=== PATIENT | female | born 1960 | race Caucasian/White ===

== ENCOUNTER 2023-06-16 09:42 | Outpatient (CLI) | payer OTHER ==
--- NOTE | 2023-06-16 15:21 | DEXA Report ---
PROCEDURE: Dexa Spine and/or Hip INDICATIONS: MENOPAUSAL TECHNIQUE: Dual energy x-ray absorptiometry (DXA) was performed on a [employer] System. Regions measur ed are the AP Spine, femoral neck, and if needed forearm. COMPARISON: None. FINDINGS: Lumbar Spine: Bone Mineral Density 1.289 g/cm/cm,T score 0.9. Left Femoral Neck: Bone Mineral Density 0.813 g/cm/cm, T score -1.6. Left Hip: Bone Mineral Density 0.867 g/cm/cm,T score -1.1. (T score greater or equal to -1.0: NORMAL) (T score from -1.1 to -2.4: OSTEOPENIA) (T score less than or equal to -2.5 to: OSTEOPOROSIS) Impression: By WHO criteria, this patient has low bone density (osteopenia). Patients with diagnosis of osteoporosis or osteopenia should have regular bone mineral density assess ment. For those eligible for Medicare, routine testing is allowed once every 2 years. Testing frequ ency can be increased for patients who have rapidly progressing disease or for those who are receivin g medical therapy to restore bone mass. Reviewed by: Haris Sanchez MD on 06/16/2023 3:20 PM PST Approved by: Haris Sanchez MD on 06/16/2023 3:20 PM PST Station ID: [id number]
== END 2023-06-16 09:43 | disposition home or self-care (01) ==
LOC: DI 09:42
PROVIDERS: ATTEND Internal Medicine
DX: M85.89 Other specified disorders of bone density and structure, multiple sites (principal)

== ENCOUNTER 2023-08-19 14:47 | Outpatient (CLI) | payer OTHER ==
--- NOTE | 2023-08-27 11:48 | Mammography Report ---
BILATERAL DIGITAL SCREENING MAMMOGRAM 3D/2D: 08/19/2023 CLINICAL: Routine screening. Family history of breast cancer. No prior exams were available for comparison. There are scattered areas of fibroglandular density in both breasts (category b / 25%-50% glandular t issue). There is a cluster of focal asymmetries in the right breast central to the nipple in the retroareolar region. There also is a focal asymmetry in the right breast at 9 o'clock posterior depth. There is a focal asymmetry in the left breast central to the nipple anterior depth. No other significant masses or calcifications are seen in either breast. IMPRESSION: INCOMPLETE: NEEDS ADDITIONAL IMAGING EVALUATION The cluster of focal asymmetries in the right breast central to the nipple in the retroareolar region is indeterminate. Additional views with possible ultrasound are recommended. The focal asymmetry in the right breast at 9 o'clock posterior depth is indeterminate. Additional vi ews with possible ultrasound are recommended. The focal asymmetry in the left breast central to the nipple anterior depth is indeterminate. Additi onal views with possible ultrasound are recommended. Based on the Tyrer Cuzick model (a risk assessment model) the patients lifetime risk is 5.0% and her 10 year risk is 2.3%. According to the ACR, ACS, and NCCN guidelines, an annual breast MRI exam along with mammogram is recommended if the patients lifetime risk is 20% or greater. This exam was interpreted at Station ID: [id number]. NOTE: For mammograms, a report in lay terms will be sent to the patient. Approximately 15% of breast malignancies will not be visualized mammographically. In the management of a palpable breast mass, a negative mammogram must not discourage biopsy of a clinically suspicious lesion. Electronically Signed By: Wan Parsons M.D. lc/:08/27/2023 10:33:56 ACR BI-RADS Category 0: Incomplete 3340F PARENCHYMAL PATTERN: (A) - The breast(s) demonstrate(s) scattered fibroglandular densities. BI-RADS CATEGORY: (0) - 0 Mammo and [place] [id number] Immediate follow-up LATERALITY: (B)
== END 2023-08-19 14:48 | disposition home or self-care (01) ==
LOC: DI.S 14:47
DX: Z12.31 Encounter for screening mammogram for malignant neoplasm of breast (principal); Z80.3 Family history of malignant neoplasm of breast; R92.323 Mammographic fibroglandular density, bilateral breasts; R92.8 Other abnormal and inconclusive findings on diagnostic imaging of breast

== ENCOUNTER 2023-09-16 07:44 | Outpatient (CLI) | payer OTHER ==
--- NOTE | 2023-09-16 11:34 | Mammography Report ---
BILATERAL DIGITAL DIAGNOSTIC MAMMOGRAM 3D/2D WITH SPOT COMPRESSION: 09/16/2023 CLINICAL: Patient returns today to evaluate asymmetries in bilateral breasts. Comparison is made to exam dated: 08/19/2023 mammogram - [facility]. There are scattered areas of fibroglandular density in both breasts (category b / 25%-50% glandular t issue). There also is a focal asymmetry in the right breast at 2 o'clock anterior depth. This correlates as an incidental finding and is seen on additional views.. The focal asymmetry in the right breast at 9 o'clock posterior depth is not seen in additional views. The cluster of focal asymmetries in the right breast central to the nipple in the retroareolar region are not seen in additional views. The focal asymmetry in the left breast central to the nipple anterior depth is seen in additional vie ws. No other significant masses or calcifications are seen in either breast. IMPRESSION: INCOMPLETE: NEEDS ADDITIONAL IMAGING EVALUATION The right breast asymmetries deep to the nipple and at 9 o'clock seen on the screening mammogram like ly respresent superimposed fibroglandular tissue and are benign. The focal asymmetry in the right breast at 2 o'clock anterior depth seen on additional views is indet erminate. The focal asymmetry in the left breast central to the nipple anterior depth likely represents a cyst and is indeterminate. A targeted ultrasound of the bilateral breasts is recommended and will be performed immediately follo wing this exam. Based on the Tyrer Cuzick model (a risk assessment model) the patient's lifetime risk is 5.0% and her 10 year risk is 2.3%. According to the ACR, ACS, and NCCN guidelines, an annual breast MRI exam carole g with mammogram is recommended if the patient's lifetime risk is 20% or greater. This exam was interpreted at Station ID: [id number]. NOTE: For mammograms, a report in lay terms will be sent to the patient. Approximately 15% of breast malignancies will not be visualized mammographically. In the management of a palpable breast mass, a negative mammogram must not discourage biopsy of a clinically suspicious lesion. Electronically Signed By: Lisa Brush M.D. lk/:09/16/2023 08:40:15 ACR BI-RADS Category 0: Incomplete 3340F PARENCHYMAL PATTERN: (A) - The breast(s) demonstrate(s) scattered fibroglandular densities. BI-RADS CATEGORY: (0) - 0 Ultrasound [id number] Immediate follow-up LATERALITY: (B)
--- NOTE | 2023-09-16 11:34 | Ultrasound Report ---
LIMITED ULTRASOUND OF LEFT BREAST: 09/16/2023 CLINICAL: Patient returns today to evaluate a focal asymmetry in the left breast. Comparison is made to exams dated: 09/16/2023 mammogram and 08/19/2023 mammogram - [facility]. Color flow ultrasound of the left breast 3 o'clock region was performed on the areas of interest. G ray scale images of the real-time examination were reviewed. There is a cluster of dilated ducts in the left breast at 3 o'clock anterior depth. This cluster of dilated ducts displays posterior acoustic enhancement. This correlates with mammography findings. C olor flow imaging demonstrates that there is no vascularity present. IMPRESSION: BENIGN There is no sonographic evidence of malignancy. The cluster of dilated ducts in the left breast is benign. Return to annual mammogram screening schedule is recommended. This exam was interpreted at Station ID: [id number]. Electronically Signed By: Lisa Brush M.D. lk/:09/16/2023 09:04:48 Ultrasound BI-RADS: 2 Benign BI-RADS CATEGORY: (2) - 2 Mammogram [id number] return to screening LATERALITY: (B)
--- NOTE | 2023-09-16 11:34 | Ultrasound Report ---
LIMITED ULTRASOUND OF RIGHT BREAST: 09/16/2023 CLINICAL: Patient returns today to evaluate a focal asymmetry in the right breast. Comparison is made to exams dated: 09/16/2023 ultrasound, 09/16/2023 mammogram, and 08/19/2023 mammogram - [facility]. Color flow ultrasound of the right breast 2-3 o'clock region was performed on the areas of interest. Wilcox scale images of the real-time examination were reviewed. IMPRESSION: PROBABLY BENIGN There is no sonographic abnormality seen in the right breast to correspond with the mammography findi ng. A follow-up mammogram and a possible ultrasound in 6 months is recommended to demonstrate stability. This exam was interpreted at Station ID: [id number]. Electronically Signed By: Lisa Brush M.D. lk/:09/16/2023 09:02:47 Ultrasound BI-RADS: 3 Probably benign BI-RADS CATEGORY: (3) - 3 Mammo and US [id number] 6 month follow-up LATERALITY: (B)
== END 2023-09-16 07:45 | disposition home or self-care (01) ==
LOC: DI 07:44
PROVIDERS: ATTEND Internal Medicine
DX: R92.8 Other abnormal and inconclusive findings on diagnostic imaging of breast (principal); R92.323 Mammographic fibroglandular density, bilateral breasts

== ENCOUNTER 2024-01-22 11:19 | Outpatient (CLI) | payer OTHER ==
[2024-01-22 16:27] LABS: THYROID STIMULATING HORMONE 3.05 uIU/mL (0.34-5.60)
== END 2024-01-22 11:20 | disposition home or self-care (01) ==
LOC: LAB.S 11:19
PROVIDERS: ATTEND Internal Medicine
DX: E06.3 Autoimmune thyroiditis (principal)
CPT/HCPCS: 36415; 84439; 84443

== ENCOUNTER 2024-03-18 09:50 | Outpatient (CLI) | payer OTHER ==
--- NOTE | 2024-03-21 08:07 | Mammography Report ---
UNILATERAL RIGHT DIGITAL DIAGNOSTIC MAMMOGRAM 3D/2D: 03/18/2024 CLINICAL: Patient returns for a 6 month follow up of the right breast. Comparison is made to exams dated: 09/16/2023 mammogram, 08/19/2023 mammogram, 09/16/2023 ultrasound, and 09/16/2023 ultrasound - [facility]. There are scattered areas of fibroglandular density in the right breast (category b / 25%-50% glandul ar tissue). There is an oval focal asymmetry with a circumscribed margin in the right breast at 2 o'clock anterio r depth. This is less prominent and was not seen on the prior ultrasound. No other significant masses or calcifications are seen in the breast. IMPRESSION: PROBABLY BENIGN The oval focal asymmetry in the right breast resembles a lymph node and is probably benign. A follow-up mammogram in 6 months is recommended to demonstrate stability. Based on the Tyrer Cuzick model (a risk assessment model) the patient's lifetime risk is 9.3% and her 10 year risk is 4.5%. According to the ACR, ACS, and NCCN guidelines, an annual breast MRI exam carole g with mammogram is recommended if the patient's lifetime risk is 20% or greater. This exam was interpreted at Station ID: [id number] NOTE: For mammograms, a report in lay terms will be sent to the patient. Approximately 15% of breast malignancies will not be visualized mammographically. In the management of a palpable breast mass, a negative mammogram must not discourage biopsy of a clinically suspicious lesion. Electronically Signed By: Haris Sanchez M.D. ar/:03/18/2024 10:27:00 Entry: aa - 03/21/2024 08:03:56 ACR BI-RADS Category 3: Probably benign 3343F PARENCHYMAL PATTERN: (A) - The breast(s) demonstrate(s) scattered fibroglandular densities. BI-RADS CATEGORY: (3) - 3 Mammogram [id number] 6 month follow-up LATERALITY: (B)
== END 2024-03-18 09:51 | disposition home or self-care (01) ==
LOC: DI 09:50
PROVIDERS: ATTEND Registered Nurse
DX: R92.8 Other abnormal and inconclusive findings on diagnostic imaging of breast (principal); R92.321 Mammographic fibroglandular density, right breast